=== PATIENT | female | born 1960 | race Caucasian/White ===

== ENCOUNTER 2018-02-21 14:37 | Emergency (ER) | payer OTHER ==
--- NOTE | 2018-02-21 14:44 | ER Report ---
History and Physical Time Seen By MD: 14:40 HPI/ROS CHIEF COMPLAINT: leg pain HISTORY OF PRESENT ILLNESS: This is a 57 year old female. She is visiting here from [place]. She flew in on . Started having some medial thigh pain on the left leg yesterday. Did have a little bit of overuse of the leg, so could be some muscle pain. Is a little short of breath, but [place]. Has no chest pain or palpitations. No fevers or chills. Mild nausea, no vomiting. No history of blood clots in the past, herself or family history. No leg injuries otherwise. Allergies: Coded Allergies: No Known Drug Allergies (Unverified , 02/21/18) Home Meds Reported Medications Progesterone,Micronized (PROGESTERONE) 100 Mg Capsule, 100 MG PO, CAPSULE 02/21/18 [Estrogen Cream] No Conflict Check 02/21/18 Bupropion Hcl (WELLBUTRIN SR) 200 Mg Tablet.er, 200 MG PO QDAY, TAB 02/21/18 Reviewed Nurses Notes: Yes Constitutional Vital Sign - Last 24 Hours 02/21/18 02/21/18 02/21/18 02/21/18 14:42 14:43 15:11 15:16 Temp 97.9 Pulse 105 ??? Resp 20 B/P (MAP) 150/109 150/109 (123) 128/83 (98) Pulse Ox 66 O2 Delivery Room Air 02/21/18 02/21/18 02/21/18 02/21/18 15:30 15:46 16:06 16:16 Pulse ??? 78 B/P (MAP) ???/??? (1665) 123/86 (98) Pulse Ox 95 02/21/18 16:35 B/P (MAP) 122/83 (96) Physical Exam General Appearance: Alert, no acute distress. Eyes: Pupils equal and round no injection. ENT: Normal oral mucosa. Moist mucous membranes. Respiratory: Chest is non tender, lungs are clear to auscultation. Cardiac: regular rate and rhythm. Normal pulses. Normal capillary refill. No edema. Musculoskeletal: Has some tenderness on the medial left thigh. No palpable chords. No pain elsewhere in the extremity. Skin: No rashes or lesions. DIFFERENTIAL DIAGNOSIS: After history and physical exam differential diagnosis was considered for leg pain after travel with mild shortness of breath. Could be a DVT or musculoskeletal pain combined with being at altitude. Will get a lower extremity ultrasound to rule out DVT. Vital signs look normal at this time. Medical Decision Making EKG/Imaging Imaging VENOUS DOPP LOW LEFT EXTREMITY HISTORY: leg pain, recent travel EXAMINATION: Unilateral lower extremity deep vein duplex Doppler ultrasound Additional Pertinent history: none COMPARISON STUDIES: none FINDINGS: Grayscale compression, duplex and color Doppler interrogation of the left lower extremity deep veins from common femoral vein to proximal calf was performed. The greater saphenous vein was evaluated using similar technique. Common femoral vein negative Femoral vein negative Deep femoral vein - negative Popliteal vein negative Visualized deep calf veins negative Greater saphenous vein in the proximal thigh negative Popliteal fossa: negative IMPRESSION: 1. Negative left leg for DVT Report Dictated By: Sivakumar Abrams MD at 02/21/2018 4:04 PM ED Course/Re-evaluation Clinical Indication for ER IV: IV Access ED Course Discussed results with the patient. No sign of DVT. Appears to be musculoskeletal. Conservative management as noted below. Decision to Disposition Date: Feb 21, 2018 Decision to Disposition Time: 16:20 Depart Departure Latest Vital Signs Vital Signs Date Time Temp Pulse Resp B/P (MAP) Pulse Ox O2 Delivery O2 Flow Rate FiO2 02/21/18 16:35 122/83 (96) 02/21/18 16:16 78 95 02/21/18 14:42 97.9 20 Room Air Impression: Primary Impression: Left thigh pain Condition: Improved Disposition: HOME OR SELF-CARE Patient Instructions: Musculoskeletal Pain (ED) Additional Instructions: Ibuprofen 200mg over the counter tablets, take 4 tablets three times a day with food. Apply ice 20 minutes every 1-2 hours while awake. Rest the injured area, keep it elevated while at rest. Begin gentle range of motion and gentle massage. BESS MONROY MD Feb 21, 2018 14:44
[2018-02-21] MEDS ORDERED: PROG100C PO (14:51)
[2018-02-21] MEDS ORDERED: BUPR200T18 PO (14:51)
[2018-02-21] MEDS ORDERED: ESTROGEN CREAM (14:51)
--- NOTE | 2018-02-21 16:09 | RADIOLOGY IMAGING REPORT ---
FACILITY: [facility] [place] PATIENT NAME: Donavon Diaz : 1960 MR: [id number] V: [id number] EXAM DATE: ORDERING PHYSICIAN: BESS MONROY TECHNOLOGIST: Location: [facility] [place] Patient: Donavon Diaz : 1960 Visit/Account:[id number] Date of Sevice: 02/21/2018 VENOUS DOPP LOW LEFT EXTREMITY HISTORY: leg pain, recent travel EXAMINATION: Unilateral lower extremity deep vein duplex Doppler ultrasound Additional Pertinent history: none COMPARISON STUDIES: none FINDINGS: Grayscale compression, duplex and color Doppler interrogation of the left lower extremity deep veins from common femoral vein to proximal calf was performed. The greater saphenous vein was evaluated usi ng similar technique. Common femoral vein negative Femoral vein negative Deep femoral vein - negative Popliteal vein negative Visualized deep calf veins negative Greater saphenous vein in the proximal thigh negative Popliteal fossa: negative IMPRESSION: 1. Negative left leg for DVT Report Dictated By: Sivakumar Abrams MD at 02/21/2018 4:04 PM Report E-Signed By: Sivakumar Abrams MD at 02/21/2018 4:05 PM [id number]
[2018-02-21 16:35] VITALS: BP 122/83
== END 2018-02-21 16:37 | disposition home or self-care (01) ==
LOC: ER 14:43
DX: M79.652 Pain in left thigh (principal)
CPT/HCPCS: 99284